=== PATIENT | female | born 1960 | race Hispanic/Latino ===

== ENCOUNTER 2017-04-02 06:24 | Emergency (ER) | payer OTHER ==
[2017-04-02 06:26] VITALS: BMI 19.1
--- NOTE | 2017-04-02 06:37 | ED PDOC ---
Arrival/HPI - General Time Seen by Provider: 04/02/17 06:26 - History of Present Illness Narrative History of Present Illness (Text): 04/02/17 06:26 pt present complaining of left flank pain, chills no dysuria or cough or abdominal pain denies cp or sob Time/Duration: < week (3 days) Symptom Course: Worsening Past Medical History - Provider Review Nursing Documentation Reviewed: Yes - Travel History Have you recently traveled outside [place] w/in the past 3 mons?: No Family/Social History - Physician Review Nursing Documentation Reviewed: Yes Family/Social History: No Known Family HX Allergies/Home Meds Allergies/Adverse Reactions: Allergies No Known Allergies Allergy (Verified 04/02/17 06:26) Home Medications: Home Meds Medication Instructions Recorded Confirmed Conjugated Estrogens [Premarin 1 appl TD DAILY 04/02/17 04/02/17 Vaginal Cream] Progesterone,Micronized 100 mg PO DAILY 04/02/17 04/02/17 [Prometrium] Review of Systems - Review of Systems Constitutional: Fevers. absent: Night Sweats Eyes: Normal ENT: Normal Respiratory: SOB Cardiovascular: Normal Gastrointestinal: absent: Abdominal Pain, Diarrhea, Nausea, Vomiting Genitourinary Female: Normal Musculoskeletal: Back Pain Skin: Normal Neurological: Normal Endocrine: Normal Hemo/Lymphatic: Normal Psychiatric: Normal Physical Exam Vital Signs Reviewed: Yes Vital Signs Temp Pulse Resp BP Pulse Ox 04/02/17 08:14 80 16 99 04/02/17 06:41 130/88 04/02/17 06:36 97.7 F 84 18 134/100 H 100 Temperature: Afebrile Blood Pressure: Normal Pulse: Regular Respiratory Rate: Normal Appearance: Positive for: Well-Appearing, Non-Toxic, Comfortable Pain Distress: None Mental Status: Positive for: Alert and Oriented X 3 - Systems Exam Head: Present: Atraumatic, Normocephalic Pupils: Present: PERRL Extroacular Muscles: Present: EOMI Conjunctiva: Present: Normal Mouth: Present: Moist Mucous Membranes Neck: Present: Normal Range of Motion Respiratory/Chest: Present: Clear to Auscultation, Good Air Exchange. No: Respiratory Distress, Accessory Muscle Use Cardiovascular: Present: Regular Rate and Rhythm, Normal S1, S2. No: Murmurs Abdomen: Present: Normal Bowel Sounds. No: Tenderness, Distention, Peritoneal Signs Back: Present: Normal Inspection Upper Extremity: Present: Normal Inspection. No: Cyanosis, Edema Lower Extremity: Present: Normal Inspection. No: Edema Neurological: Present: GCS=15, CN II-XII Intact, Speech Normal Skin: Present: Warm, Dry, Normal Color. No: Rashes Psychiatric: Present: Alert, Oriented x 3, Normal Insight, Normal Concentration Medical Decision Making - Lab Interpretations Lab Results: 04/02/17 07:17 04/02/17 07:17 Lab Results 04/02/17 07:35: Urine Color Yellow, Urine Appearance Clear, Urine pH 6.5, Ur Specific [place] <= 1.005, Urine Protein Negative, Urine Glucose (UA) Negative, Urine Ketones Negative, Urine Blood Negative, Urine Nitrate Negative, Urine Bilirubin Negative, Urine Urobilinogen 0.2, Ur Leukocyte Esterase Negative 04/02/17 07:17: D-Dimer, Quantitative 0.31 04/02/17 07:17: Sodium 144, Potassium 3.9, Chloride 109 H, Carbon Dioxide 27, Anion Gap 12, BUN 13, Creatinine 0.7, Est GFR ( Amer) > 60, Est GFR (Non- Af Amer) > 60, Random Glucose 98, Calcium 8.8, Total Bilirubin 0.7, AST 26, ALT 31, Alkaline Phosphatase 58, Troponin I < 0.01, Total Protein 6.4, Albumin 4.1, Globulin 2.3, Albumin/Globulin Ratio 1.8 04/02/17 07:17: WBC 5.1 D, RBC 4.59, Hgb 13.7, Hct 41.3, MCV 90.0, MCH 29.8, MCHC 33.2, RDW 12.7, Plt Count 201, MPV 9.4, Gran % 59.2, Lymph % (Auto) 31.0, Rock % (Auto) 4.9, Eos % (Auto) 4.5, Baso % (Auto) 0.4, Gran # 3.02, Lymph # 1.6 , Rock # 0.3, Eos # 0.2, Baso # 0.02 - RAD Interpretation Radiology Orders: 04/02/17 06:40 CHEST TWO VIEWS (PA/LAT) [RAD] Stat - Medication Orders Current Medication Orders: Discontinued Medications Ketorolac Tromethamine (Toradol) 10 mg IVP STAT STA Stop: 04/02/17 07:09 Last Admin: 04/02/17 07:30 Dose: 10 mg MAR Pain Assessment Document 04/02/17 07:30 (Rec: 04/02/17 07:30 [id number]) Pain Reassessment Is this a pain reassessment? Yes Sleep Is patient sleeping during reassessment? No Presence of Pain Presence of Pain Yes IVP Administration Document 04/02/17 07:30 (Rec: 04/02/17 07:30 [id number]) Charges for Administration # of IVP Administrations 1 - Transfer of Care Patient signed out to Dr:: pete labs and dispo Disposition/Present on Arrival - Present on Arrival Any Indicators Present on Arrival: No - Disposition Have Diagnosis and Disposition been Completed?: Yes Diagnosis: Back pain Disposition: HOME/ ROUTINE Disposition Time: 07:00 Condition: IMPROVED Additional Instructions: Please follow up with your doctor. Return to the ER for any worsening symptoms or for any other concerns. Referrals: Jayant Dodd MD [Family Provider] - Follow up with primary Forms: [employer] (Albanian)
[2017-04-02 06:40] VITALS: TEMP 97.7
[2017-04-02 06:42] VITALS: BP 130/88
[2017-04-02 07:24] LABS: BASO # 0.02 K/mm3 (0.0-2.0); BASO % 0.4 % (0.0-3.0); EOS # 0.2 (0.0-0.7); EOS % 4.5 % (1.5-5.0); GRAN # 3.02 (1.4-6.5); GRAN % 59.2 % (50.0-68.0); HEMATOCRIT 41.3 % (36.0-48.0); LYMPH # 1.6 (1.2-3.4); MEAN CORPUSCULAR HEMOGLOBIN 29.8 pg (25.0-35.0); MEAN CORPUSCULAR HGB CONC 33.2 g/dl (31.0-37.0); MEAN PLATELET VOLUME 9.4 fl (7.0-11.0); MONO # 0.3 (0.1-0.6); MONO % 4.9 % (1.0-6.0); RED CELL DISTRIBUTION WIDTH 12.7 % (11.5-14.5); WHITE BLOOD COUNT 5.1 10^3/ul (4.5-11.0)
[2017-04-02 07:32] LABS: ALB/GLOB RATIO 1.8 (1.1-1.8); ALKALINE PHOSPHATASE 58 U/L (38-126); ALT/SGPT 31 U/L (7-56); AST/SGOT 26 U/L (14-36); BILIRUBIN,TOTAL 0.7 mg/dL (0.2-1.3); BLOOD UREA NITROGEN 13 mg/dL (7-21); CALCIUM 8.8 mg/dL (8.4-10.5); CARBON DIOXIDE 27 mmol/L (21-33); CHLORIDE 109 mmol/L (98-107); GFR AFRICAN-AMERICAN > 60; GLUCOSE,RANDOM 98 mg/dL (70-110); POTASSIUM 3.9 mmol/L (3.6-5.0); SODIUM 144 mmol/L (132-148); TOTAL PROTEIN 6.4 g/dL (5.8-8.3)
[2017-04-02 07:40] LABS: PH,URINE 6.5 (4.7-8.0); URINE BILIRUBIN NEGATIVE (NEGATIVE); URINE BLOOD NEGATIVE (NEGATIVE); URINE GLUCOSE (UA) NEGATIVE (NEGATIVE); URINE KETONE NEGATIVE (NEGATIVE); URINE LEUKOCYTE ESTERASE NEGATIVE Leu/uL (NEGATIVE); URINE PROTEIN NEGATIVE mg/dL (<30 mg/dL); URINE UROBILINOGEN 0.2 E.U./dL (<1 E.U./dL)
[2017-04-02 07:43] LABS: TROPONIN I < 0.01 ng/mL
[2017-04-02 07:43] LABS: URINE APPEARANCE CLEAR (CLEAR); URINE COLOR YELLOW (YELLOW)
[2017-04-02 08:15] VITALS: PULSE 80; RESP 16; O2SAT 99
--- NOTE | 2017-04-02 08:16 | RAD ---
HISTORY: fall COMPARISON: No prior. TECHNIQUE: Chest PA and lateral FINDINGS: LUNGS: No infiltrate. Lungs are mildly hyperinflated with increase in the A-P diameter and increased width of the retrosternal clear space. PLEURA: No significant pleural effusion identified. No pneumothorax apparent. CARDIOVASCULAR: Normal. OSSEOUS STRUCTURES: No significant abnormalities. VISUALIZED UPPER ABDOMEN: Normal. OTHER FINDINGS: None. IMPRESSION: No infiltrate. Pulmonary hyperinflation suggestive of possible emphysema.
--- NOTE | 2017-04-02 19:57 | CARD ---
APPROVED REPORT EKG Measurement Heart [id number] <Conclusion> Normal sinus rhythm Normal ECG
== END 2017-04-02 08:25 | disposition home or self-care (01) ==
LOC: ED 06:24
DX: M54.9 Dorsalgia, unspecified (principal)
CPT/HCPCS: 71020; 80053; 81003; 84484; 85025; 85378; 93005; 96374; 99284; J1885

== ENCOUNTER 2018-04-03 08:57 | Emergency (ER) | payer OTHER ==
[2018-04-03 08:57] VITALS: BMI 19.1
[2018-04-03 09:03] VITALS: BP 141/94; RESP 18; TEMP 97.9
--- NOTE | 2018-04-03 09:35 | ED PDOC ---
Arrival/HPI - General Chief Complaint: Lower Extremity Problem/Injury Time Seen by Provider: 04/03/18 08:58 - History of Present Illness Narrative History of Present Illness (Text): 04/03/18 09:33 57 yo presents to the ED c/o right foot pain x 1 week. 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 She's been in pain since especially her 5th toe. She noticed swelling and bruising to her right foot. Walking makes it worse. No numbness or weakness. No ankle pain. No other trauma. PMD: No PMD. Past Medical History - Provider Review Nursing Documentation Reviewed: Yes - Reproductive Menopause: Yes - Psychiatric Hx Psychophysiologic Disorder: No Hx Substance Use: No - Surgical History Hx Breast Biopsy: Yes - Anesthesia Hx Anesthesia: No Family/Social History - Physician Review Nursing Documentation Reviewed: Yes Family/Social History: No Known Family HX Smoking Status: Never Smoked Hx Alcohol Use: Yes Frequency of alcohol use: Socially Hx Substance Use: No Allergies/Home Meds Allergies/Adverse Reactions: Allergies No Known Allergies Allergy (Verified 04/03/18 09:04) Home Medications: Home Meds Medication Instructions Recorded Confirmed Progesterone,Micronized 100 mg PO DAILY 04/02/17 04/03/18 [Prometrium] Review of Systems - Review of Systems Constitutional: Normal Eyes: Normal ENT: Normal Respiratory: Normal Cardiovascular: Normal Gastrointestinal: Normal Genitourinary Female: Normal Musculoskeletal: Other (Right foot and right 5th toe pain) Skin: Normal Neurological: Normal Endocrine: Normal Hemo/Lymphatic: Normal Psychiatric: Normal Physical Exam Vital Signs Reviewed: Yes Vital Signs Temp Pulse Resp BP Pulse Ox 04/03/18 09:02 97.9 F 87 18 141/94 H 100 Temperature: Afebrile Blood Pressure: Hypertensive Pulse: Regular Respiratory Rate: Normal Appearance: Positive for: Well-Appearing, Non-Toxic, Comfortable Pain Distress: None Mental Status: Positive for: Alert and Oriented X 3 - Systems Exam Head: Present: Atraumatic, Normocephalic Lower Extremity: Present: NORMAL PULSES, Normal ROM, Tenderness (doral mid foot tenderness closer to 5th toe. Tenderness to 5th toe. Nail bed intact.), Neurovascularly Intact, Capillary Refill < 2 s Neurological: Present: GCS=15, CN II-XII Intact, Speech Normal, Motor Func Grossly Intact, Normal Sensory Function Psychiatric: Present: Alert, Oriented x 3, Normal Insight, Normal Concentration Medical Decision Making ED Course and Treatment: 04/03/2018 09:37 Right Foot X-Ray IMPRESSION: Nondisplaced fracture of the 5th middle phalanx. Dictator: Edvin Delaney MD 04/03/18 10:12 57 yo female with right foot pain especially 5th toe r/o contusion r/o fracture -- Xray shows fx as noted above -- Case discussed with Dr. Morel, podiatry, who recommend leonard tape and a Cam Walker for support. -- He recommends follow in one week. She will [facility] and I also placed information for follow up with Podiatry, Dr. Harding. - RAD Interpretation Radiology Orders: 04/03/18 09:05 FOOT RIGHT 3 VIEWS ROUTINE [RAD] Stat Disposition/Present on Arrival - Present on Arrival Any Indicators Present on Arrival: No History of DVT/PE: No History of Uncontrolled Diabetes: No Urinary Catheter: No History of Decub. Ulcer: No History Surgical Site Infection Following: None - Disposition Have Diagnosis and Disposition been Completed?: Yes Diagnosis: Fracture of fifth toe, right, closed Disposition: HOME/ ROUTINE Disposition Time: 09:34 Condition: GOOD Discharge Instructions (ExitCare): Contusion (DC) Additional Instructions: MICA KRISHNA, thank you for letting us take care of you today. Your provider was Cedric Cerrato DO and you were treated for Foot Contusion. The emergency medical care you received today was directed at your acute symptoms. If you were prescribed any medication, please fill it and take as directed. It may take several days for your symptoms to resolve. Return to the Emergency Department if your symptoms worsen, do not improve, or if you have any other problems. [facility] Employee Regarding your Work Related Injury, you are instructed to do all of the following by next day: 1. Notify [facility] Employee Health Department of the sustained injury and arrange for any follow-up appointments if needed during the next business day. If the office is closed or no answer is received, please leave a detailed voice message. Message should include your full name, department and marketing account manager, date of injury, date of ED visit if applicable. [facility] can be reached at [phone]. 2. If there is time lost, notify [facility] Human Resources Department of the work related injury the next business day at [phone]. Thank you for allowing the [facility] team to be part of your care today. If you had an X-Ray or CT scan: A Radiologist will review the ED reading if any change in treatment is needed we will contact you. If you had a blood, urine, or wound culture: It will take several days for the results, if any change in treatment is needed we will contact you. If you had an STI test: It will take 48 hours for the results. Please call after 1 week if you have not heard back. Prescriptions: Ibuprofen [Motrin] 600 mg PO Q6 PRN #30 tab PRN Reason: Pain, Moderate (4-7) Referrals: Libra Harding DPM [Staff Provider] - Follow up with primary Forms: [employer] (Kenyan), WORK NOTE
--- NOTE | 2018-04-03 09:40 | RAD ---
Date of service: 04/03/2018 PROCEDURE: Right Foot Radiographs. HISTORY: trauma f/o fx COMPARISON: None. FINDINGS: BONES: On the lateral view a nondisplaced fracture can be seen in the 5th middle phalanx. JOINTS: Normal. SOFT TISSUES: Normal. OTHER FINDINGS: None. IMPRESSION: Nondisplaced fracture of the 5th middle phalanx
[2018-04-03 09:53] VITALS: PULSE 72; O2SAT 99
== END 2018-04-03 09:53 | disposition home or self-care (01) ==
LOC: ED 08:57
DX: S92.524A Nondisplaced fracture of middle phalanx of right lesser toe(s), initial encounter for closed fracture (principal); W20.8XXA Other cause of strike by thrown, projected or falling object, initial encounter; Y92.89 Other specified places as the place of occurrence of the external cause; Y99.0 Civilian activity done for income or pay

== ENCOUNTER 2018-05-02 22:01 | Emergency (ER) | payer OTHER ==
[2018-05-02 22:01] VITALS: BMI 19.1
[2018-05-02 22:27] VITALS: BP 132/91; PULSE 67; RESP 18; TEMP 97.7; O2SAT 100
--- NOTE | 2018-05-02 22:40 | ED PDOC ---
Arrival/HPI - General Chief Complaint: Eye Problem Time Seen by Provider: 05/02/18 22:05 Historian: Patient - History of Present Illness Narrative History of Present Illness (Text): 05/02/18 22:41 57-year-old female complaining of swelling to the upper and lower eyelid of the right eye which she noticed this evening while she was at work. Otherwise the patient reports no eye pain, discharge, redness of the eye, decrease in vision, contact lens use, headache, URI, fever, trauma or injury to the eye. Past Medical History - Psychiatric Hx Psychophysiologic Disorder: No Hx Substance Use: No - Surgical History Hx Breast Biopsy: Yes - Anesthesia Hx Anesthesia: Yes Hx Anesthesia Reactions: No Hx Malignant Hyperthermia: No Family/Social History Family/Social History: No Known Family HX Smoking Status: Never Smoked Hx Alcohol Use: Yes Hx Substance Use: No Allergies/Home Meds Allergies/Adverse Reactions: Allergies No Known Allergies Allergy (Verified 04/03/18 09:04) Home Medications: Home Meds Medication Instructions Recorded Confirmed Progesterone,Micronized 100 mg PO DAILY 04/02/17 04/03/18 [Prometrium] Review of Systems - Review of Systems Constitutional: absent: Fatigue, Fevers Eyes: Other (eyelid swelling). absent: Vision Changes, Photophobia, Eye Pain ENT: absent: Sore Throat, Rhinorrhea, Epistaxis, Sinus Congestion Skin: absent: Rash, Pruritis, Skin Lesions Physical Exam Vital Signs Temp Pulse Resp BP Pulse Ox 05/02/18 22:17 97.7 F 67 18 132/91 H 100 Temperature: Afebrile Blood Pressure: Normal Pulse: Regular Respiratory Rate: Normal Appearance: Positive for: Well-Appearing, Non-Toxic, Comfortable Pain Distress: None Mental Status: Positive for: Alert and Oriented X 3 - Systems Exam Head: Present: Atraumatic, Normocephalic Pupils: Present: PERRL Extroacular Muscles: Present: EOMI, Other (+mild edema to the upper and lower R eyelids) Conjunctiva: Present: Normal, Other (no discharge) Ears: Present: Normal, NORMAL TM, Normal Canal. No: Erythema Mouth: Present: Moist Mucous Membranes Neck: Present: Normal Range of Motion. No: Meningeal Signs, Lymphadenopathy Neurological: Present: GCS=15, CN II-XII Intact, Speech Normal, Motor Func Grossly Intact Skin: Present: Warm, Dry, Normal Color. No: Rashes Psychiatric: Present: Alert, Oriented x 3, Normal Insight, Normal Concentration Medical Decision Making ED Course and Treatment: 05/02/18 22:43 Advised to follow up with primary care physician in 1-2 days without fail. Advised to take otc zyrtec for her symptoms. Return to the emergency room at any time for any new or worsening symptoms. Patient states she fully agrees with and understands discharge instructions. States that she agrees with the plan and disposition. Verbalized and repeated discharge instructions and plan. I have given the patient opportunity to ask any additional questions. - PA / GLASSWARE MAKER DEMONSTRATOR / Resident Statement MD/DO has reviewed & agrees with the documentation as recorded. Disposition/Present on Arrival - Present on Arrival Any Indicators Present on Arrival: No History of DVT/PE: No History of Uncontrolled Diabetes: No Urinary Catheter: No History of Decub. Ulcer: No History Surgical Site Infection Following: None - Disposition Have Diagnosis and Disposition been Completed?: No Diagnosis: Swelling of eyelid Disposition: HOME/ ROUTINE Disposition Time: 22:30 Patient Plan: Discharge Patient Problems: Current Active Problems Problem Status Onset Swelling of eyelid Acute Condition: STABLE Discharge Instructions (ExitCare): Contact Dermatitis (DC) Additional Instructions: Thank you for letting us take care of you today. You were treated for swelling to eyelid, likely allergic reaction. The emergency medical care you received today was directed at your acute symptoms. Take over the counter zyrtec for your symptoms. It may take several days for your symptoms to resolve. Return to the Emergency Department if your symptoms worsen, do not improve, or if you have any other problems. Please contact your doctor in 2 days for re-evaluation and follow up. Bring any paperwork you were given at discharge with you along with any medications you are taking to your follow up visit. Our treatment cannot replace ongoing medical care by a primary care provider (PCP) outside of the emergency department. Thank you for allowing the [facility] team to be part of your care today. Forms: [email or web address] (Kazakh)
== END 2018-05-02 23:15 | disposition home or self-care (01) ==
LOC: ED 22:01
DX: H02.89 Other specified disorders of eyelid (principal)